=== PATIENT | male | born 1995 | race African-American/Black ===

== ENCOUNTER 2019-04-25 19:24 | Emergency (ER) | payer MEDICAID ==
[~2019-04-25] VITALS: Ht 170.2 cm; Wt 68.0 kg
[2019-04-25 22:09] VITALS: BP 164/99
== END 2019-04-26 00:14 | disposition home or self-care (01) ==
LOC: ER 19:30
DX: F90.9 Attention-deficit hyperactivity disorder, unspecified type (principal); J45.909 Unspecified asthma, uncomplicated; F17.210 Nicotine dependence, cigarettes, uncomplicated; Z76.0 Encounter for issue of repeat prescription